=== PATIENT | female | born 1995 ===

== ENCOUNTER 2018-09-19 15:28 | Emergency (ER) | payer MEDICAID ==
[2018-09-19] MEDS ORDERED: Sodium Chloride 0.9% 1,000 ML IV STA ×3 (15:47→20:20)
--- NOTE | 2018-09-19 15:49 | ED PDOC ---
HPI: Abdomen Time Seen by Provider: 09/19/18 15:41 Chief Complaint (Nursing): Abdominal Pain History Per: Patient Onset/Duration Of Symptoms: Days (2) Current Symptoms Are (Timing): Still Present Severity: Moderate Location Of Pain/Discomfort: RLQ, Epigastric Quality Of Discomfort: Sharp Associated Symptoms: Nausea, Vomiting. denies: Diarrhea Additional Complaint(s): Epigastric and RLQ abd pain assoc with vomiting x 2 days. denies fever. or diarrhea. no blood in stool or vomitus. H/o gastritis, no improvement with sucralfate. Past Medical History Vital Signs: Last Vital Signs Temp 98.8 F 09/19/18 15:32 Pulse 97 H 09/19/18 15:32 Resp 16 09/19/18 15:32 BP 133/88 09/19/18 15:32 Pulse Ox 96 09/19/18 15:32 Primary Care Provider: FAMILY PROVIDER,NO - Medical History PMH: Gastritis - Family History Family History: States: Unknown Family Hx - Immunization History Hx Tetanus Toxoid Vaccination: No Hx Influenza Vaccination: No Hx Pneumococcal Vaccination: No - Home Medications Home Medications: Ambulatory Orders Medication Instructions Recorded No Known Home Med 09/10/14 Nitrofurantoin Macrocrystals 100 mg PO BID #14 cap 09/22/16 [Macrobid] Multivit/Folic Acid/I 1 tab PO DAILY #30 tab 09/22/16 [ Plus] - Allergies Allergies/Adverse Reactions: Allergies Allergy/AdvReac Type Severity Reaction Status Date / Time No Known Allergies Allergy Verified 09/19/18 15:31 Review of Systems ROS Statement: Except As Marked, All Systems Reviewed And Found Negative Gastrointestinal: Positive for: Nausea, Vomiting, Abdominal Pain Physical Exam - Reviewed Nursing Documentation Reviewed: Yes Vital Signs Reviewed: Yes - Physical Exam Appears: Positive for: Non-toxic, No Acute Distress Head Exam: Positive for: ATRAUMATIC, NORMAL INSPECTION, NORMOCEPHALIC Skin: Positive for: Normal Color, Warm, DRY Eye Exam: Positive for: EOMI, Normal appearance, PERRL ENT: Positive for: Normal ENT Inspection Neck: Positive for: Normal, Painless ROM Cardiovascular/Chest: Positive for: Regular Rate, Rhythm Respiratory: Positive for: CNT, Normal Breath Sounds Gastrointestinal/Abdominal: Positive for: Soft, Tenderness (epigastric and RLQ). Negative for: Guarding, Rebound Back: Positive for: Normal Inspection Extremity: Positive for: Normal ROM Neurological/Psych: Positive for: Awake, Alert, Normal Tone - Laboratory Results Result Diagrams: 09/19/18 16:35 09/19/18 16:35 - ECG O2 Sat by Pulse Oximetry: 96 Disposition - Clinical Impression Clinical Impression: Abdominal pain - Patient ED Disposition Is Patient to be Admitted: Transfer of Care - Disposition Disposition: Transfer of Care Disposition Time: 19:05 Condition: FAIR Forms: [employer] (Azeri) Patient Signed Over To: Iván Proctor (Pending US and reeval)
[2018-09-19] MEDS ORDERED: Iohexol 300 100 ML IJ ONE (15:59)
[2018-09-19] MEDS ORDERED: Sodium Chloride 0.9% 50 ML IV ONE (15:59)
[2018-09-19 16:42] LABS: BASO % 0.2 % (0.0-2.0); HEMOGLOBIN 11.7 g/dL (12.0-16.0); LYMPH # 1.4 K/uL (1.0-4.3); MEAN CELL VOLUME 77.3 fl (81.0-99.0); MEAN CORPUSCULAR HEMOGLOBIN 24.9 pg (27.0-31.0); MEAN CORPUSCULAR HGB CONC 32.2 g/dL (33.0-37.0); MEAN PLATELET VOLUME 9.7 fl (7.2-11.7); MONO # 1.1 K/uL (0.0-0.8); MONO % 5.6 % (0.0-10.0); NEUT % 87.2 % (50.0-75.0); NRBC % 0.1 % (0.0-0.0); PLATELET COUNT 293 K/uL (130-400); RBC 4.72 Mil/uL (3.80-5.20); RED CELL DISTRIBUTION WIDTH 13.8 % (11.5-14.5); WHITE BLOOD COUNT 19.5 K/uL (4.8-10.8)
[2018-09-19 16:53] LABS: ALB/GLOB RATIO 1.2 (1.0-2.1); ALBUMIN 5.2 g/dL (3.5-5.0); ALT/SGPT 18 U/L (9-52); AST/SGOT 31 U/L (14-36); BLOOD UREA NITROGEN 9 mg/dl (7-17); CALCIUM 9.8 mg/dL (8.4-10.2); GFR NON-AFRICAN AMERICAN > 60; LIPASE 22 U/L (23-300)
[2018-09-19] MEDS ORDERED: Potassium Chloride 20 mEq ER Tab PO ONE ×2 (17:34→18:37)
[2018-09-19 17:45] LABS: LYMPHOCYTE 6 % (20-50); MONOCYTE 5 % (0-10); NEUTROPHIL 89 % (42-75); PLATELET ESTIMATE NORMAL (NORMAL); TOTAL CELLS COUNTED 100
[2018-09-19 17:46] LABS: ANISOCYTOSIS SLIGHT; OVALOCYTES SLIGHT
[2018-09-19 17:47] LABS: HYPOCHROMIC SLIGHT; LARGE PLATELETS PRESENT
--- NOTE | 2018-09-19 19:17 | ED PDOC ---
- Laboratory Results Result Diagrams: 09/19/18 22:13 09/19/18 16:35 Lab Results: Total Bilirubin 0.7 mg/dl (0.2-1.3) 09/19/18 16:35 AST 31 U/L (14-36) 09/19/18 16:35 ALT 18 U/L (9-52) 09/19/18 16:35 Alkaline Phosphatase 101 U/L (38-126) 09/19/18 16:35 Total Protein 9.4 G/DL (6.3-8.2) H 09/19/18 16:35 Albumin 5.2 g/dL (3.5-5.0) H 09/19/18 16:35 Globulin 4.2 gm/dL (2.2-3.9) H 09/19/18 16:35 Albumin/Globulin Ratio 1.2 (1.0-2.1) 09/19/18 16:35 Lipase 22 U/L (23-300) L 09/19/18 16:35 - ECG O2 Sat by Pulse Oximetry: 96 Medical Decision Making Medical Decision Makin:00 Patient signed out to me by Eze Sands MD pending US transvaginal pelvis and reevaluation. 19:31 US transvaginal pelvis read and reviewed by radiologist FINDINGS: ENDOMETRIUM: There is fluid within the endometrial cavity. UTERUS/CERVIX: The uterus appears within normal limits. No uterine fibroid or other mass evident. RIGHT OVARY: Normal Doppler flow. No abnormal mass. LEFT OVARY: Normal Doppler flow. No abnormal mass. FREE FLUID: Moderate amount of free fluid within the cul-de-sac. IMPRESSION: No suspicious mass identified. Fluid in the endometrial cavity and a moderate amount of fluid within the cul-de-sac. Clinical correlation advised. 20:15 Upon reevaluation, patient still reports having pain. (+) tenderness to the RLQ and supraumbilical region. Patient not given pain medications, morphine 2 mg IVP ordered. Large ketones in urine 2 liters of fluid bolus ordered. Repeat CBC and lactate after fluids. 00:25 Repeat CBC shows white blood cell count is trending down. Lactic acid is normal. Patient reports that symptoms are improved. Provider spoke with radiologist for possible re-read of CT and radioloigst states that patient has some sort of inflammation that is gynecological is origin. Radiologist is confident that her appendix is not inflamed. 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 Patient treated for salpingitis and will be discharged with a short term prescription for tramadol. Patient verbally counseled on appropriate use of opioids including risks and safety plan. Will be discharged with instructions regarding proper use. ScribeAttestation: Documented byNayeli Dobbs, acting as a scribe for Iván Proctor MD. Provider ScribeAttestation: All medical record entries made by the Scribe were at my direction and personally dictated by me. I have reviewed the chart and agree that the record accurately reflects my personal performance of the history, physical exam, medical decision making, and the department course for this patient. I have also personally directed, reviewed, and agree with the discharge instructions and disposition. Disposition - Clinical Impression Clinical Impression: Salpingitis - POA Present On Arrival: None - Disposition [facility] All Blandon MD, PhD [Staff Provider] - Disposition: Routine/Home Disposition Time: 00:30 Condition: STABLE Prescriptions: Doxycycline Hyclate 100 mg PO BID #14 capsule Ondansetron ODT [Zofran ODT] 4 mg PO Q6 PRN #8 odt PRN Reason: Nausea/Vomiting traMADol [Ultram] 50 mg PO Q6 PRN #8 tab PRN Reason: pelvic pain Instructions: Pelvic Inflammatory Disease, Opioids for Short-Term Treatment of Pain, Taking Narcotics Safely Forms: [employer] (Cook Islander), [facility] ED School/Work Excuse
[2018-09-19] MEDS ORDERED: K-Lyte 25meq EF Tab PO ONE (19:42)
[2018-09-19 20:00] VITALS: RESP 18
[2018-09-19 22:21] LABS: BASO % 0.2 % (0.0-2.0); EOS % 0.1 % (0.0-4.0); HEMOGLOBIN 10.6 g/dL (12.0-16.0); LYMPH # 1.2 K/uL (1.0-4.3); LYMPH % 7.7 % (20.0-40.0); MEAN CORPUSCULAR HEMOGLOBIN 25.5 pg (27.0-31.0); MEAN CORPUSCULAR HGB CONC 32.7 g/dL (33.0-37.0); MEAN PLATELET VOLUME 9.5 fl (7.2-11.7); MONO # 1.1 K/uL (0.0-0.8); MONO % 7.1 % (0.0-10.0); NEUT # 12.9 K/uL (1.8-7.0); NEUT % 84.9 % (50.0-75.0); RBC 4.16 Mil/uL (3.80-5.20); RED CELL DISTRIBUTION WIDTH 13.9 % (11.5-14.5); WHITE BLOOD COUNT 15.2 K/uL (4.8-10.8)
[2018-09-19 23:40] VITALS: TEMP 99.9
[2018-09-20] MEDS ORDERED: cefTRIAXone (Rocephin) 1 gm Inj ONE (00:07)
[2018-09-20 02:20] VITALS: BP 119/64; PULSE 86
[2018-09-20 02:52] VITALS: O2SAT 96
--- NOTE | 2018-09-20 13:54 | CT ---
Date of service: 09/19/2018 PROCEDURE: CT Abdomen and Pelvis with contrast HISTORY: Abdominal pain, vomiting. LMP 08/27/2018. COMPARISON: September 18, 2018. Pelvic ultrasound TECHNIQUE: Intravenous contrast dose: 90 cc Visipaque 320. Radiation dose: Total exam DLP = 525.52 mGy-cm. This CT exam was performed using one or more of the following dose reduction techniques: Automated exposure control, adjustment of the mA and/or kV according to patient size, and/or use of iterative reconstruction technique. FINDINGS: LOWER THORAX: Unremarkable. LIVER: Hepatic steatosis. Focal fatty sparing adjacent to the falciform ligament. GALLBLADDER AND BILE DUCTS: Unremarkable. PANCREAS: Unremarkable. No gross lesion or ductal dilatation. SPLEEN: Unremarkable. ADRENALS: Unremarkable. No mass. KIDNEYS AND URETERS: Unremarkable. No hydronephrosis. No solid mass. VASCULATURE: Unremarkable. No aortic aneurysm. No atherosclerotic calcification or mural plaque present. BOWEL: Unremarkable. No obstruction. No gross mural thickening. APPENDIX: Edematous appendix, contrast-enhancing characteristics of the wall and the dilated nature indicate acute appendicitis. Appendiceal diameter 14 mm. PERITONEUM: Trace free fluid in the cul-de-sac. No free air identified. LYMPH NODES: Unremarkable. No enlarged lymph nodes. BLADDER: Unremarkable. REPRODUCTIVE: Unremarkable. BONES: No acute fracture. OTHER FINDINGS: None. IMPRESSION: Acute, uncomplicated appendicitis. Trace free fluid identified in the pelvis/cul de sac. Additional benign and/or incidental findings described above. Critical results: I discussed the findings with the attending physician in the emergency department Dr. Iker Francisco at 13:44. This is discordant with the preliminary interpretation provided at 22:55.
--- NOTE | 2018-09-20 13:59 | US ---
Date of service: 09/19/2018 HISTORY: Abd pain, pelvic fluid LMP 08/27/2018. COMPARISON: 09/19/2018. CT abdomen and pelvis. TECHNIQUE: Transvaginal only. Real -time technique with 2D, duplex and color Doppler FINDINGS: UTERUS: Measures 3.5 x 3.8 x 6.0 cm. Heterogeneous echo characteristics. No fibroid or other mass lesion seen. ENDOMETRIUM: Measures 5.5 mm in diameter. Trace fluid identified in the endometrial canal. CERVIX: No cervical abnormality identified. RIGHT OVARY: Measures 3.4 x 3 x 5.3 cm. No solid mass. Normal flow. Multiple subcentimeter follicles. LEFT OVARY: Measures 2.1 x 2.9 x 1.8 cm. No solid mass. Normal flow. Multiple subcentimeter follicles. FREE FLUID: Small volume free fluid identified in the pelvis/cul de sac. OTHER FINDINGS: None. IMPRESSION: Trace fluid in the endometrial canal. Small volume fluid in the cul-de-sac. Additional benign and/or incidental findings described above. Concordant findings (preliminary report) provided by [facility].
== END 2018-09-20 00:06 | disposition home or self-care (01) ==
LOC: H.ER 15:28
DX: N70.91 Salpingitis, unspecified (principal); K35.80 Unspecified acute appendicitis; B37.3 Candidiasis of vulva and vagina
CPT/HCPCS: 74177; 76830; 80053; 81025; 83605; 83690; 85025; 87070; 87491; 87591; 96361; 96365; 96375; 99285; J0696; J2270; J2405; J7030; Q9967

== ENCOUNTER 2018-09-20 15:16 | Inpatient (IN) | payer BC, MEDICAID ==
[2018-09-20] MEDS ORDERED: Piperacillin/Tazobact 4.5 GM in Sodium Chloride 0.9% 100 ML IVPB STA (15:25)
[2018-09-20] MEDS ORDERED: Sodium Chloride 0.9% 1,000 ML IV STA (15:26)
--- NOTE | 2018-09-20 15:30 | ED PDOC ---
HPI: Abdomen Time Seen by Provider: 09/20/18 15:21 Chief Complaint (Nursing): Abdominal Pain Chief Complaint (Provider): Abdominal pain History Per: Patient History/Exam Limitations: no limitations Additional Complaint(s): Pt called back from ED for CT reread that revealed appendicitis. Pt reports continues RLQ pain, no fever, no nause/vomiting. Past Medical History Reviewed: Nursing Documentation, Vital Signs Vital Signs: Last Vital Signs Temp 98.6 F 09/20/18 15:23 Pulse 106 H 09/20/18 15:23 Resp 18 09/20/18 15:23 BP 117/59 L 09/20/18 15:23 Pulse Ox 99 09/20/18 15:23 Primary Care Provider: Carl Calvert R - Medical History PMH: Gastritis - Family History Family History: States: Unknown Family Hx - Living Arrangements Living Arrangements: With Family - Social History Current smoker - smoking cessation education provided: No - Immunization History Hx Tetanus Toxoid Vaccination: No Hx Influenza Vaccination: No Hx Pneumococcal Vaccination: No - Home Medications Home Medications: Ambulatory Orders Medication Instructions Recorded Doxycycline Hyclate 100 mg PO BID #14 capsule 09/21/18 Ondansetron ODT [Zofran ODT] 4 mg PO Q6 PRN #8 odt 09/21/18 traMADol [Ultram] 50 mg PO Q6 PRN #8 tab 09/21/18 - Allergies Allergies/Adverse Reactions: Allergies Allergy/AdvReac Type Severity Reaction Status Date / Time No Known Allergies Allergy Verified 09/20/18 15:23 Review of Systems Constitutional: Negative for: Fever, Chills Cardiovascular: Negative for: Chest Pain, Palpitations Respiratory: Negative for: Cough, Shortness of Breath Gastrointestinal: Positive for: Abdominal Pain. Negative for: Nausea, Vomiting, Diarrhea Genitourinary Female: Negative for: Dysuria, Hematuria Physical Exam - Reviewed Nursing Documentation Reviewed: Yes Vital Signs Reviewed: Yes - Physical Exam Appears: Positive for: Uncomfortable Head Exam: Positive for: ATRAUMATIC, NORMAL INSPECTION Skin: Positive for: Normal Color, Warm, Dry Cardiovascular/Chest: Positive for: Regular Rate, Rhythm Respiratory: Positive for: Normal Breath Sounds Gastrointestinal/Abdominal: Positive for: Bowel Sounds, Soft, Tenderness (RLQ), Guarding. Negative for: Distended Extremity: Positive for: Normal ROM Neurological/Psych: Positive for: Awake, Alert, Oriented - Laboratory Results Result Diagrams: 09/21/18 05:08 09/21/18 05:08 - ECG O2 Sat by Pulse Oximetry: 99 Medical Decision Making Medical Decision Makin yo female with appendicitis. Accession No. : [id number] Patient Name / ID : KARLOS SCOTT / [id number] Exam Date : 09/19/2018 17:48:04 ( Approved ) Study Comment : Sex / Age : F / 23Y Creator : Iban Cortes MD Dictator : Iban Cortes MD Hog Room Supervisor : Calender Worker Helper : Iban Cortes MD Approver2 : Report Date : 09/20/2018 13:51:27 My Comment : Date of service: 09/19/2018 PROCEDURE: CT Abdomen and Pelvis with contrast HISTORY: Abdominal pain, vomiting. LMP 08/27/2018. COMPARISON: September 18, 2018. Pelvic ultrasound TECHNIQUE: Intravenous contrast dose: 90 cc Visipaque 320. Radiation dose: Total exam DLP = 525.52 mGy-cm. This CT exam was performed using one or more of the following dose reduction techniques: Automated exposure control, adjustment of the mA and/or kV according to patient size, and/or use of iterative reconstruction technique. FINDINGS: LOWER THORAX: Unremarkable. LIVER: Hepatic steatosis. Focal fatty sparing adjacent to the falciform ligament. GALLBLADDER AND BILE DUCTS: Unremarkable. PANCREAS: Unremarkable. No gross lesion or ductal dilatation. SPLEEN: Unremarkable. ADRENALS: Unremarkable. No mass. KIDNEYS AND URETERS: Unremarkable. No hydronephrosis. No solid mass. VASCULATURE: Unremarkable. No aortic aneurysm. No atherosclerotic calcification or mural plaque present. BOWEL: Unremarkable. No obstruction. No gross mural thickening. APPENDIX: Edematous appendix, contrast-enhancing characteristics of the wall and the dilated nature indicate acute appendicitis. Appendiceal diameter 14 mm. PERITONEUM: Trace free fluid in the cul-de-sac. No free air identified. LYMPH NODES: Unremarkable. No enlarged lymph nodes. BLADDER: Unremarkable. REPRODUCTIVE: Unremarkable. BONES: No acute fracture. OTHER FINDINGS: None. IMPRESSION: Acute, uncomplicated appendicitis. Trace free fluid identified in the pelvis/cul de sac. Additional benign and/or incidental findings described above. 15:30 Disposition - Clinical Impression Clinical Impression: Acute appendicitis - Patient ED Disposition Is Patient to be Admitted: Yes - Disposition Disposition Time: 15:37 Condition: STABLE
[2018-09-20 15:39] VITALS: BMI 29.9
[2018-09-20 16:02] LABS: BASO # 0.1 K/uL (0.0-0.2); BASO % 0.6 % (0.0-2.0); EOS % 0.3 % (0.0-4.0); HEMOGLOBIN 11.3 g/dL (12.0-16.0); LYMPH # 1.5 K/uL (1.0-4.3); LYMPH % 15.5 % (20.0-40.0); MEAN CELL VOLUME 77.5 fl (81.0-99.0); MEAN CORPUSCULAR HEMOGLOBIN 25.7 pg (27.0-31.0); MEAN CORPUSCULAR HGB CONC 33.2 g/dL (33.0-37.0); MEAN PLATELET VOLUME 9.1 fl (7.2-11.7); MONO # 0.9 K/uL (0.0-0.8); MONO % 9.6 % (0.0-10.0); NEUT # 7.3 K/uL (1.8-7.0); RBC 4.41 Mil/uL (3.80-5.20); RED CELL DISTRIBUTION WIDTH 13.8 % (11.5-14.5); WHITE BLOOD COUNT 9.9 K/uL (4.8-10.8)
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
[2018-09-20 16:09] LABS: INR 1.4; PROTHROMBIN TIME 15.8 Seconds (9.8-13.1)
[2018-09-20 16:12] LABS: PARTIAL THROMBOPLASTIN TIME 25.8 Seconds (25.6-37.1)
[2018-09-20 16:22] LABS: ALB/GLOB RATIO 1.2 (1.0-2.1); ALBUMIN 4.3 g/dL (3.5-5.0); ALT/SGPT 24 U/L (9-52); AST/SGOT 21 U/L (14-36); BLOOD UREA NITROGEN 7 mg/dl (7-17); CALCIUM 9.1 mg/dL (8.4-10.2); GFR NON-AFRICAN AMERICAN > 60
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
[2018-09-20] MEDS ORDERED: Potassium Ch 20mEq in D5-1/2NS 1,000 ML IV SCH (16:45)
--- NOTE | 2018-09-20 16:50 | RAD ---
Date of service: 09/20/2018 HISTORY: Preop COMPARISON: No prior. FINDINGS: LUNGS: No active pulmonary disease. PLEURA: No significant pleural effusion identified, no pneumothorax apparent. CARDIOVASCULAR: No atherosclerotic calcification present Normal. OSSEOUS STRUCTURES: No significant abnormalities. VISUALIZED UPPER ABDOMEN: Normal. OTHER FINDINGS: None. IMPRESSION: No active disease.
[2018-09-20] MEDS: Lactated Ringer's 1,000 ML IV SCH (19:24)
[2018-09-21] MEDS: Lactated Ringer's 1,000 ML IV SCH (03:55)
[2018-09-21] MEDS ORDERED: Piperacillin/Tazobact 3.375 GM in Sodium Chloride 0.9% 100 ML IVPB SCH ×4 (04:00→16:00)
[2018-09-21 06:00] LABS: HEMOGLOBIN 9.3 g/dL (12.0-16.0); MEAN CELL VOLUME 77.8 fl (81.0-99.0); MEAN CORPUSCULAR HEMOGLOBIN 25.7 pg (27.0-31.0); MEAN CORPUSCULAR HGB CONC 33.1 g/dL (33.0-37.0); RBC 3.62 Mil/uL (3.80-5.20); RED CELL DISTRIBUTION WIDTH 13.6 % (11.5-14.5); WHITE BLOOD COUNT 6.7 K/uL (4.8-10.8)
[2018-09-21 06:04] LABS: INR 1.3; PROTHROMBIN TIME 15.1 Seconds (9.8-13.1)
[2018-09-21 06:07] LABS: PARTIAL THROMBOPLASTIN TIME 24.8 Seconds (25.6-37.1)
[2018-09-21 06:33] LABS: ALB/GLOB RATIO 1.1 (1.0-2.1); ALBUMIN 3.4 g/dL (3.5-5.0); ALT/SGPT 23 U/L (9-52); AST/SGOT 21 U/L (14-36); BLOOD UREA NITROGEN 8 mg/dl (7-17); CALCIUM 8.5 mg/dL (8.4-10.2); GFR NON-AFRICAN AMERICAN > 60
--- NOTE | 2018-09-21 09:53 | CARD ---
APPROVED REPORT Date of service: 09/20/2018 EKG Measurement Heart [id number] <Conclusion> Sinus rhythm with marked sinus arrhythmia Otherwise normal ECG
[2018-09-21] MEDS ORDERED: Propofol 10 mg/ml Inj (20 ML) ONE (10:16)
[2018-09-21] MEDS ORDERED: ePHEDrine 50 mg/ml Inj ONE (10:18)
[2018-09-21] MEDS ORDERED: Midazolam 2 MG/2 ML VIAL ONE ×2 (10:18→11:47)
[2018-09-21] MEDS ORDERED: Succinylcholine Chloride 20 mg/ml Syr (5 ml) IV ONE (10:19)
[2018-09-21] MEDS ORDERED: Rocuronium 10 mg/ml (5 ml) ONE (10:19)
[2018-09-21] MEDS ORDERED: Bupivacaine 0.5% Inj(30mL) ONE (10:23)
[2018-09-21] MEDS ORDERED: Lidocaine 4% (Laryng-O-Jet) Kit MM ONE (10:44)
[2018-09-21] MEDS ORDERED: Neostigmine 1:1000 (1 mg/ml) Inj ONE (11:17)
[2018-09-21] MEDS ORDERED: Lactated Ringer's 1,000 ML IV ONE ×2 (11:19→11:47)
[2018-09-21] MEDS ORDERED: HYDROmorphone 0.5 mg/0.5 ml ISec IVP PRN (11:59)
[2018-09-21] MEDS ORDERED: Oxycodone/Acetaminophen 5/325 mg Tab PO PRN ×2 (12:00)
[2018-09-21] MEDS ORDERED: Lactated Ringer's 1,000 ML IV SCH (12:00)
--- NOTE | 2018-09-21 12:00 | PCM.SURG1 ---
Surgeon's Initial Post Op Note - Surgeon's Notes Surgeon: Dr. Fish Beasley Banquet Lead: Shelley Rojas, PGY-2; Ralph Kelly, PGY-1 Type of Anesthesia: General Endo Anesthesia Administered By: Dr Vasquez Pre-Operative Diagnosis: Acute appendicitis Operative Findings: Appendicitis Post-Operative Diagnosis: Uncomplicated appendicitis Operation Performed: Laparoscopic appendectomy Specimen/Specimens Removed: appendix Estimated Blood Loss: EBL {In ML}: 5 Blood Products Given: N/A Drains Used: No Drains Post-Op Condition: Good Date of Surgery/Procedure: 09/21/18 Time of Surgery/Procedure: 12:00
[2018-09-21 12:12] VITALS: RESP 18
--- NOTE | 2018-09-21 15:13 | CP.PCM.PCO ---
Assessment & Plan - Assessment and Plan (Free Text) Assessment: Patient cleared for discharge from a surgical standpoint once tolerating dinner and no nausea/vomiting Discharge instructions discussed with patient Patient acknowledged and verbalized understanding of treatment plan Patient to follow up with Dr. Beasley in office. Instructed to call in advance for appointment Plan: Discussed with Dr. Gale Kelly PGY1
--- NOTE | 2018-09-21 16:04 | CP.PCM.DIS ---
<Sigrid Escobar - Last Filed: 09/21/18 16:07> Provider - Provider Date of Admission: 09/20/18 15:37 Attending physician: Kayleen Vasquez DO Primary care physician: Carl Calvert MD Consults: 09/20/18 16:02 Surgical [General Surgery Consult] Stat Comment: Consulting Provider: Fish Beasley Consulting Physician: Fish eBasley Reason for Consult: acute appendicitis Time Spent in preparation of Discharge (in minutes): 20 Diagnosis - Discharge Diagnosis (1) Appendicitis Status: Resolved Hospital Course - Lab Results Lab Results: Most Recent Lab Values WBC 6.7 K/uL (4.8-10.8) 09/21/18 05:08 RBC 3.62 Mil/uL (3.80-5.20) L 09/21/18 05:08 Hgb 9.3 g/dL (12.0-16.0) L D 09/21/18 05:08 Hct 28.2 % (34.0-47.0) L 09/21/18 05:08 MCV 77.8 fl (81.0-99.0) L 09/21/18 05:08 MCH 25.7 pg (27.0-31.0) L 09/21/18 05:08 MCHC 33.1 g/dL (33.0-37.0) 09/21/18 05:08 RDW 13.6 % (11.5-14.5) 09/21/18 05:08 Plt Count 219 K/uL (130-400) 09/21/18 05:08 MPV 9.1 fl (7.2-11.7) 09/20/18 15:50 Neut % (Auto) 74.0 % (50.0-75.0) 09/20/18 15:50 Lymph % (Auto) 15.5 % (20.0-40.0) L 09/20/18 15:50 [place] % (Auto) 9.6 % (0.0-10.0) 09/20/18 15:50 Eos % (Auto) 0.3 % (0.0-4.0) 09/20/18 15:50 Baso % (Auto) 0.6 % (0.0-2.0) 09/20/18 15:50 Neut # (Auto) 7.3 K/uL (1.8-7.0) H 09/20/18 15:50 Lymph # (Auto) 1.5 K/uL (1.0-4.3) 09/20/18 15:50 [place] # (Auto) 0.9 K/uL (0.0-0.8) H 09/20/18 15:50 Eos # (Auto) 0.0 K/uL (0.0-0.7) 09/20/18 15:50 Baso # (Auto) 0.1 K/uL (0.0-0.2) 09/20/18 15:50 PT 15.1 Seconds (9.8-13.1) H 09/21/18 05:08 INR 1.3 09/21/18 05:08 APTT 24.8 Seconds (25.6-37.1) L 09/21/18 05:08 Sodium 137 mmol/l (132-148) 09/21/18 05:08 Potassium 3.6 MMOL/L (3.6-5.0) 09/21/18 05:08 Chloride 103 mmol/L (98-107) 09/21/18 05:08 Carbon Dioxide 21 mmol/L (22-30) L 09/21/18 05:08 Anion Gap 17 (10-20) 09/21/18 05:08 BUN 8 mg/dl (7-17) 09/21/18 05:08 Creatinine 0.5 mg/dl (0.7-1.2) L 09/21/18 05:08 Est GFR ( Amer) > 60 09/21/18 05:08 Est GFR (Non-Af Amer) > 60 09/21/18 05:08 Random Glucose 76 mg/dL (65-105) 09/21/18 05:08 Calcium 8.5 mg/dL (8.4-10.2) 09/21/18 05:08 Total Bilirubin 0.3 mg/dl (0.2-1.3) 09/21/18 05:08 AST 21 U/L (14-36) 09/21/18 05:08 ALT 23 U/L (9-52) 09/21/18 05:08 Alkaline Phosphatase 58 U/L (38-126) 09/21/18 05:08 Total Protein 6.5 G/DL (6.3-8.2) 09/21/18 05:08 Albumin 3.4 g/dL (3.5-5.0) L D 09/21/18 05:08 Globulin 3.1 gm/dL (2.2-3.9) 09/21/18 05:08 Albumin/Globulin Ratio 1.1 (1.0-2.1) 09/21/18 05:08 Blood Type A POSITIVE 09/20/18 15:50 Antibody Screen Negative 09/20/18 15:50 BBK History Checked Patient has bt 09/20/18 15:50 - Hospital Course Hospital Course: 23-year-old female with no pertinent PMH admitted for acute uncomplicated appendicitis. Abd/Pelvis CT (09/19/18): Acute, uncomplicated appendicitis. Trace free fluid identified in the pelvis/cul de sac. Laporoscopic appendectomy preformed, patient tolerated procecdure well. Voiding and ambulating without difficulty, tolerating PO hydration and solids. Bowel soudns present, passing gas. Medically cleared for discharge to home. Discharge Exam - Head Exam Head Exam: NORMAL INSPECTION - Eye Exam Eye Exam: Normal appearance - Respiratory Exam Respiratory Exam: NORMAL BREATHING PATTERN. absent: Respiratory Distress - Cardiovascular Exam Cardiovascular Exam: REGULAR RHYTHM - GI/Abdominal Exam GI & Abdominal Exam: Soft, Tenderness (around lap surgical sites, not out of proportion to expected) - Neurological Exam Neurological exam: Alert, Normal Gait, Oriented x3 - Psychiatric Exam Psychiatric exam: Normal Affect, Normal Mood - Skin Skin Exam: Dry, Normal Color, Warm Discharge Plan - Discharge Medications Prescriptions: Doxycycline Hyclate 100 mg PO BID #14 capsule Ondansetron ODT [Zofran ODT] 4 mg PO Q6 PRN #8 odt PRN Reason: Nausea/Vomiting traMADol [Ultram] 50 mg PO Q6 PRN #8 tab PRN Reason: pelvic pain - Follow Up Plan Condition: STABLE Disposition: HOME/ ROUTINE Instructions: Quitting Smoking for Teens and Young Adults, Appendectomy, Laparoscopic Surgery (DC) Additional Instructions: Please call Dr. Beasley's office for a follow up appointment NO heavy lifting for 4-6 weeks OK to resume normal diet- avoid constipation No sitting in water- ok to showering, letting water flow over your surgical incision sites, wash gently with soap and water Do not pick at the surgical glue, it will fall off on it's own Referrals: Fish Beasley MD [Staff Provider] - Carl Calvert MD [Primary Care Provider] - <Kayleen Vasquez - Last Filed: 09/22/18 19:17> Provider - Provider Date of Admission: 09/20/18 15:37 Attending physician: Kayleen Vasquez DO Primary care physician: Carl Calvert MD Consults: 09/20/18 16:02 Surgical [General Surgery Consult] Stat Comment: Consulting Provider: Fish Beasley Consulting Physician: Fish Beasley Reason for Consult: acute appendicitis Hospital Course - Lab Results Lab Results: Micro Results 09/20/18 15:45 Blood-Venous Blood Culture - Preliminary NO GROWTH AFTER 48 HOURS 09/20/18 16:15 Blood-Venous Blood Culture - Preliminary NO GROWTH AFTER 48 HOURS Most Recent Lab Values WBC 6.7 K/uL (4.8-10.8) 09/21/18 05:08 RBC 3.62 Mil/uL (3.80-5.20) L 09/21/18 05:08 Hgb 9.3 g/dL (12.0-16.0) L D 09/21/18 05:08 Hct 28.2 % (34.0-47.0) L 09/21/18 05:08 MCV 77.8 fl (81.0-99.0) L 09/21/18 05:08 MCH 25.7 pg (27.0-31.0) L 09/21/18 05:08 MCHC 33.1 g/dL (33.0-37.0) 09/21/18 05:08 RDW 13.6 % (11.5-14.5) 09/21/18 05:08 Plt Count 219 K/uL (130-400) 09/21/18 05:08 MPV 9.1 fl (7.2-11.7) 09/20/18 15:50 Neut % (Auto) 74.0 % (50.0-75.0) 09/20/18 15:50 Lymph % (Auto) 15.5 % (20.0-40.0) L 09/20/18 15:50 [place] % (Auto) 9.6 % (0.0-10.0) 09/20/18 15:50 Eos % (Auto) 0.3 % (0.0-4.0) 09/20/18 15:50 Baso % (Auto) 0.6 % (0.0-2.0) 09/20/18 15:50 Neut # (Auto) 7.3 K/uL (1.8-7.0) H 09/20/18 15:50 Lymph # (Auto) 1.5 K/uL (1.0-4.3) 09/20/18 15:50 [place] # (Auto) 0.9 K/uL (0.0-0.8) H 09/20/18 15:50 Eos # (Auto) 0.0 K/uL (0.0-0.7) 09/20/18 15:50 Baso # (Auto) 0.1 K/uL (0.0-0.2) 09/20/18 15:50 PT 15.1 Seconds (9.8-13.1) H 09/21/18 05:08 INR 1.3 09/21/18 05:08 APTT 24.8 Seconds (25.6-37.1) L 09/21/18 05:08 Sodium 137 mmol/l (132-148) 09/21/18 05:08 Potassium 3.6 MMOL/L (3.6-5.0) 09/21/18 05:08 Chloride 103 mmol/L (98-107) 09/21/18 05:08 Carbon Dioxide 21 mmol/L (22-30) L 09/21/18 05:08 Anion Gap 17 (10-20) 09/21/18 05:08 BUN 8 mg/dl (7-17) 09/21/18 05:08 Creatinine 0.5 mg/dl (0.7-1.2) L 09/21/18 05:08 Est GFR ( Amer) > 60 09/21/18 05:08 Est GFR (Non-Af Amer) > 60 09/21/18 05:08 Random Glucose 76 mg/dL (65-105) 09/21/18 05:08 Calcium 8.5 mg/dL (8.4-10.2) 09/21/18 05:08 Total Bilirubin 0.3 mg/dl (0.2-1.3) 09/21/18 05:08 AST 21 U/L (14-36) 09/21/18 05:08 ALT 23 U/L (9-52) 09/21/18 05:08 Alkaline Phosphatase 58 U/L (38-126) 09/21/18 05:08 Total Protein 6.5 G/DL (6.3-8.2) 09/21/18 05:08 Albumin 3.4 g/dL (3.5-5.0) L D 09/21/18 05:08 Globulin 3.1 gm/dL (2.2-3.9) 09/21/18 05:08 Albumin/Globulin Ratio 1.1 (1.0-2.1) 09/21/18 05:08 Blood Type A POSITIVE 09/20/18 15:50 Antibody Screen Negative 09/20/18 15:50 BBK History Checked Patient has bt 09/20/18 15:50 Attending/Attestation - Attestation I have personally seen and examined this patient.: Yes I have fully participated in the care of the patient.: Yes I have reviewed all pertinent clinical information, including history, physical exam and plan: Yes Notes (Text): Agree with findings and plan as above.
[2018-09-21 18:20] VITALS: BP 129/61; PULSE 67; TEMP 99.1
[2018-09-21 21:44] VITALS: O2SAT 99
--- NOTE | 2018-09-22 03:18 | OP ---
PROCEDURE DATE: 09/21/2018 PREOPERATIVE DIAGNOSIS: Acute appendicitis. POSTOPERATIVE DIAGNOSIS: Acute appendicitis. PROCEDURE: Laparoscopic appendectomy. SURGEON: Fish Beasley MD PYROTECHNIST: Shelley Rojas DO SECOND PYROTECHNIST: Ralph Kelly DO, surgical attendant. ANESTHESIOLOGIST: Salvatore Ferraro MD ANESTHESIA: General endotracheal intubation. IV FLUIDS: Crystalloids. ESTIMATED BLOOD LOSS: 5 mL. INTRAOPERATIVE FINDINGS: Acute appendicitis. SPECIMEN: Appendix. BRIEF HISTORY: Ms. Walls is a very pleasant 23-year-old female who came to the hospital with abdominal pain and upon further investigation on a CAT scan, was found to have acute appendicitis. All the risks and benefits of the procedure were explained to the patient and with the patient having a full understanding of all the risks and benefits involved, informed consent was obtained and the patient was taken to the operating room for above stated procedure. DESCRIPTION OF PROCEDURE: The patient was brought into the operating room and placed supine on the operating room table. Bilateral Flowtron boots were applied to the patient's lower extremities. After successful induction of anesthesia and successful endotracheal intubation by the anesthesia team, Solomon catheter was inserted into the patient's urinary bladder and subsequent to that, the patient's abdomen was prepped with ChloraPrep stick and draped in a standard surgical fashion. Prior to the beginning of procedure, time-out was called in the room and everyone in the room were in agreement. Using Veress needle, the patient's abdomen was entered at the umbilicus and pneumoperitoneum was achieved with good opening pressures. Once this was accomplished, using an 11-blade scalpel knife, approximately a 5-mm incision was made in the umbilicus in a longitudinal fashion and subsequent to that, 5-mm trocar was introduced into the patient's abdomen. At this point in time, 5-mm 0-degree scope was introduced into the patient's abdomen and the abdomen was inspected. Then, attention was turned to the lower mid abdomen. Using an 11-blade scalpel knife, approximately 5-mm incision was made in a transverse fashion and subsequent to that, another 5-mm trocar was introduced into the patient's abdomen. At this point in time, attention was turned to the left lower quadrant of the patient's abdomen. Using an 11-blade scalpel knife, approximately 1-cm incision was made in the left lower quadrant of the patient's abdomen in a transverse fashion. Subsequent to that, a 12-mm trocar was introduced into the patient's abdomen. At this point in time, using Robbi and Geck graspers, appendix was mobilized. Subsequent to that, using [place] dissector, the window was created between the appendix and the mesoappendix. Once this was accomplished, the appendix was taken right at the base with 45-mm blue load on an Endo IDA stapler. Subsequent to that, mesoappendix was taken with two loads of 45-mm green color on the Endo IDA stapler. Once the appendix was completely transected, an EndoCatch bag was introduced into the patient's abdomen. Appendix was placed inside of the bag and the bag was closed. At this point in time, some of the fluid in the pelvis was suctioned out with a suction and irrigation device and subsequent to that, appendix together with EndoCatch bag and 12-mm trocar were extracted from the patient's abdomen and passed off to the [facility] as a specimen. Fascial layer at the 12-mm trocar site was closed with several interrupted 0 Vicryl sutures, one on UR-5 needle and one on UR-6 in a [id number] fashion. Subsequent to that, the patient's abdomen was fully desufflated. The rest of the trocars were removed from the patient's abdomen. The skin was closed with 4-0 Monocryl suture in a running subcuticular fashion. At the end of the procedure, the incision sites were infiltrated with 0.5% Marcaine anesthetic. The patient's abdomen was washed and dried. Dermabond was applied to the site of the incisions. Subsequent to that, Solomon catheter was removed from the patient's urinary bladder. The patient was successfully extubated by the anesthesia team, transferred to the stretcher and taken to the recovery room in a stable condition. At the end of the procedure, all instrument counts, needles, and sponges were correct. Fish Beasley MD
== END 2018-09-21 18:00 | disposition home or self-care (01) | DRG 343 ==
LOC: H.ER 15:16 → H.ERHOLD 15:37 → H.PEDS 18:00
PROVIDERS: ADMIT Student in an Organized Health Care Education/Training Program; ATTEND Student in an Organized Health Care Education/Training Program
PROC: 0DTJ4ZZ Resection of Appendix, Percutaneous Endoscopic Approach (ICD-10-PCS; principal; 2018-09-21 10:00)
DX: K35.80 Unspecified acute appendicitis (principal); K29.70 Gastritis, unspecified, without bleeding; F17.210 Nicotine dependence, cigarettes, uncomplicated